=== PATIENT | female | born 1945 | race Caucasian/White ===

== ENCOUNTER → 2017-03-01 | Outpatient (CLI) | payer OTHER ==
[~2017-03-01] MED LIST: ALLEGRA ALLERG180 MG PO; FISH OIL 1,2001 EACH PO; MOMETASONE FURO15 G1 TP; OMEGA 3-6-9 11200 M1 PO; PAROXETINE HCL20 MG PO; SYNTHROID75 MCG PO; URSO FORTE PO; ZETIA PO
--- NOTE | ~2017-03-01 | MY29 ---
[facility] A Service of [facility] RADIOLOGY TEXT RESULTS PATIENT: DAWSON CHOU LOCATION: [facility] : 49 UNIT #: [id number] AGE: [address]: Yaa Garcia MD SEX: F ORDER DR: [id number] [facility] [address] [place], [place] [address] [id number] O MR#: [id number] [facility] #: [id number] NAME: DAWSON CHOU : 1945 SEX: F STUDY DATE/TIME: 03/01/2017 11:26 UNIT: [facility] ROOM: STUDY DESCRIPTION: MY NATHAN SCREENING W/ CAD BILAT Attending Physician: Yaa Garcia M.D. Referring Physician: Yaa Garcia M.D. Ordering Physician: Yaa Garcia M.D. Primary Care Physician: Yaa Garcia M.D. MEDICAL IMAGING REPORT This report is preliminary unless electronic signature is present EXAM Digital screening mammogram 03/01/2017 HISTORY 71-year-old woman. No risk elevation. Annual screen. COMPARISON Mammograms date to 01/17/2006 with most recent 02/24/2016. FINDINGS Digital imaging of each breast was completed utilizing a two-view examination of each breast in craniocaudal and mediolateral-oblique projections. Review and interpretation of digital mammograms include a second review in conjunction with FDA-approved CAD device. There is a normal parenchymal presentation bilaterally consistent with the patient's age. There are no breast masses imaged and no parenchymal asymmetry is visualized. There are no suspicious microcalcifications and I see no focal architectural disturbance. IMPRESSION Negative screening digital mammogram. One-year followup recommended. Patients over the age of 40 are entered into a reminder system with target due date for the next mammogram. A result letter will also be sent to the patient. BIRADS: 1 Negative Dictated by... Darian Mckeon M.D. THIS IS AN ELECTRONICALLY VERIFIED REPORT [facility] A Service of [facility] RADIOLOGY TEXT RESULTS PATIENT: DAWSON CHOU LOCATION: [facility] : 49 UNIT #: [id number] AGE: [address]: Yaa Garcia MD SEX: F ORDER DR: Darian Mckeon M.D. at 03/01/2017 2:18 PM MILAGROS/mahi TD: 03/01/2017 13:43 JOB #: [id number] MEDICAL IMAGING REPORT Page 1 of 1 COPY
== END | disposition home or self-care (01) ==
LOC: CWCC 11:04
DX: Z12.31 Encounter for screening mammogram for malignant neoplasm of breast (principal)
CPT/HCPCS: G0202

== ENCOUNTER → 2017-03-21 | Outpatient (CLI) | payer OTHER ==
--- NOTE | ~2017-03-21 | US6 ---
[facility] A Service of [facility] RADIOLOGY TEXT RESULTS PATIENT: DAWSON CHOU LOCATION: [facility] : 49 UNIT #: [id number] AGE: [address]: SHRADDHA BRENNAN PA-C SEX: F ORDER DR: [id number] [place], [place] [address] [id number] O MR#: [id number] Acc #: [id number] NAME: DAWSON CHOU : 1945 SEX: F STUDY DATE/TIME: 03/21/2017 10:33 UNIT: [facility] ROOM: STUDY DESCRIPTION: US Abdominal Limited Attending Physician: Shraddha Brennan Pa-C Referring Physician: Shraddha Brennan Pa-C Ordering Physician: Staff Doctor Not On Primary Care Physician: Yaa Garcia M.D. MEDICAL IMAGING REPORT This report is preliminary unless electronic signature is present EXAM Right upper quadrant ultrasound. INDICATIONS Nonalcoholic steatohepatitis. Patient has had a prior liver biopsy in September of 2014. TECHNIQUE Matute-scale and color Doppler sonographic images were obtained through the right upper quadrant. FINDINGS Pancreas appears unremarkable. Patient has diffuse hepatic steatosis. No obvious focal hepatic lesions are seen. There is hepatomegaly with the liver measuring up to 16.7 cm in craniocaudal dimensions. Patient's common bile duct is mildly prominent measuring up to 8 mm, but I do not see any intrahepatic biliary dilatation. No stones or sludge are seen within the gallbladder and there is no gallbladder wall thickening or pericholecystic fluid. Right kidney is normal in appearance with no solid or cystic renal masses seen and no hydronephrosis identified. IMPRESSION 1. Hepatomegaly and diffuse hepatic steatosis. 2. The patient does have some mild prominence of common bile duct measuring up to about 8 mm. The finding is nonspecific. Correlation with liver function tests is suggested. No intrahepatic biliary dilatation is seen. Dictated by... Bhavana Mcconnell M.D. THIS IS AN ELECTRONICALLY VERIFIED REPORT [facility] A Service of [facility] RADIOLOGY TEXT RESULTS PATIENT: DAWSON CHOU LOCATION: [facility] #: [id number] : 49 UNIT #: [id number] AGE: [address]: SHRADDHA BRENNAN PA-C SEX: F ORDER DR: Bhavana Mcconnell M.D. at 03/22/2017 5:03 PM AFF/jroly TD: 03/21/2017 23:49 JOB #: [id number] MEDICAL IMAGING REPORT Page 1 of 1 COPY
== END | disposition home or self-care (01) ==
LOC: CGUS 10:15
DX: K75.81 Nonalcoholic steatohepatitis (NASH) (principal); K73.8 Other chronic hepatitis, not elsewhere classified; R16.0 Hepatomegaly, not elsewhere classified; Z88.2 Allergy status to sulfonamides
CPT/HCPCS: 76705